=== PATIENT | male | born 1950 | race African-American/Black ===

== ENCOUNTER 2024-03-05 14:27 | Emergency (ER) | payer MEDICARE, BC, SELFPAY ==
[2024-03-05 14:28] VITALS: BP 183/101
--- NOTE | 2024-03-05 15:39 | ED.GENMED ---
History of Present Illness
<Savita Rollins PA-C - Last Filed: 03/05/24 18:37>
General
Chief Complaint: Cold/Flu/URI Symptoms
Source: patient
Exam Limitations: none
Time Seen by Provider: 03/05/24 15:09
Nursing documentation reviewed up to this point in time: agreed with
History of Present Illness
History of Present Illness:
Patient is a 73-year-old male with history hypertension, hyperlipidemia presenting to the emergency department with 9 days of cough and congestion. Patient reports proximately 9 days ago he started with nasal congestion, chest congestion, cough,
and intermittent sore throat. Symptoms do seem to persist since. Patient notes productive cough with clear/yellow sputum. Cough seems to be worse at night. Patient denies any associated fever, chills, shortness of breath, chest pain, difficulty
swallowing.
Patient has been taking Tylenol at home with some improvement in symptoms. No known sick contacts.
Review of Systems
<Savita Rollins PA-C - Last Filed: 03/05/24 18:37>
Review of Systems
Allergies reviewed?: Yes
All Other Systems: ROS reviewed and negative except as documented in HPI and ROS
Phy Exam
<Savita Rollins PA-C - Last Filed: 03/05/24 18:37>
Physical Exam
Physical Exam:
Vitals: Hypertensive, otherwise vital signs stable. Afebrile
General: Patient is well appearing, no acute distress. Nontoxic appearing
Skin: Warm and dry, no rashes or lesions
Head: Normocephalic, atraumatic
Eyes: Sclera nonicteric. EOMs intact. No nystagmus.
Throat: Posterior pharynx mildly erythematous without any tonsillar exudates or edema. Uvula midline. No ETCHER HAND. Protecting airway. Trachea midline
Neck: Normal ROM, no cervical spine tenderness, no meningismus
Cardiac: Regular rate and rhythm, no murmurs.
Pulm: Normal respiratory effort, no wheezes, rales, rhonchi heard on exam. Oxygen saturation 100 on room air
Abdomen: Abdomen soft. No abdominal tenderness.
Extremities: No evidence of cyanosis or edema. Great distal pulses
Neuro: AAOx3. CN II-XII intact. No focal neurologic deficits.
Psychiatric: Normal affect.
Course
<Savita Rollins PA-C - Last Filed: 03/05/24 18:37>
Orders/Labs/Results
Orders:
Orders
03/05/24 15:35
CR Chest - 2 Views Urgent
Comment:
Reason For Exam: cough & congestion x 9 days
03/05/24 15:41
COVID-19 Antigen Urgent
Source: Nasal Swab
Influenza A+B Rapid Molecular Urgent
BUDDY Source: Nasal Swab
Specimen Description:
03/05/24 17:12
Amoxicillin 875 mg/Clav 125 mg [Augmentin 875 mg/125 mg] 1 tablet PO NOW STA
Doxycycline [Vibramycin] 100 mg PO NOW STA
Vital Signs
Initial and Last Documented VS:
Initial Vital Signs
Temp Pulse Resp BP Pulse Ox
36.9 C 58 16 183/101 96
03/05/24 14:28 03/05/24 14:28 03/05/24 14:28 03/05/24 14:28 03/05/24 14:28
Last Documented Vital Signs
Temp Pulse Resp BP Pulse Ox
37.0 C 86 18 164/90 100
03/05/24 17:20 03/05/24 17:20 03/05/24 17:20 03/05/24 17:20 03/05/24 17:20
<Bob Jimenez MD - Last Filed: 03/05/24 19:54>
Orders/Labs/Results
Orders:
Orders
03/05/24 15:35
CR Chest - 2 Views Urgent
Comment:
Reason For Exam: cough & congestion x 9 days
03/05/24 15:41
COVID-19 Antigen Urgent
Source: Nasal Swab
Influenza A+B Rapid Molecular Urgent
BUDDY Source: Nasal Swab
Specimen Description:
03/05/24 17:12
Amoxicillin 875 mg/Clav 125 mg [Augmentin 875 mg/125 mg] 1 tablet PO NOW STA
Doxycycline [Vibramycin] 100 mg PO NOW STA
Vital Signs
Initial and Last Documented VS:
Initial Vital Signs
Temp Pulse Resp BP Pulse Ox
36.9 C 58 16 183/101 96
03/05/24 14:28 03/05/24 14:28 03/05/24 14:28 03/05/24 14:28 03/05/24 14:28
Last Documented Vital Signs
Temp Pulse Resp BP Pulse Ox
37.0 C 86 18 164/90 100
03/05/24 17:20 03/05/24 17:20 03/05/24 17:20 03/05/24 17:20 03/05/24 17:20
<Savita Rollins PA-C - Last Filed: 03/05/24 18:37>
MDM/Problems Addressed
Differential Diagnosis Includes:
Not limited to: Viral illness including COVID, flu, etc., bronchitis, pneumonia, pneumothorax, bacterial pharyngitis, CHF, etc.
MDM/Problems Addressed:
Hypertension
Chronic conditions affecting care:
73-year-old male with history as documented presenting with 9 days of viral URI symptoms and persistent cough. There are no associated fevers. Mildly hypertensive on arrival, otherwise vital signs are stable. Patient is afebrile and not hypoxic.
Exam unremarkable. Patient is in no apparent respiratory distress with clear lung sounds bilaterally. No ETCHER HAND on exam, do not suspect bacterial pharyngitis. Differential broad although suspect likely viral URI. Given duration of symptoms and
age�will check chest x-ray to rule out pneumonia. Patient without any edema or dyspnea to suggest CHF.
Update: Viral swabs negative. Chest x-ray report reviewed which shows no acute findings. Do suspect likely viral URI. However�did discuss with attending physician and will treat for possible underlying pneumonia. Patient is afebrile in no
apparent respiratory distress and very well-appearing�admission not indicated. Patient given first dose of Augmentin, doxycycline in emergency department. Patient stable for discharge home, plan to follow-up with primary care in a few days to
ensure symptoms are improving. Return precautions discussed at length. Patient seen with attending physician.
Acute Exacerbation and/or Progression of Chronic Illness:
Acutely hypertensive
<Savita Rollins PA-C - Last Filed: 03/05/24 18:37>
*Radiology
Radiology exam reviewed: preliminary read by ED provider and radiology read reviewed
*Pulse Oximetry
Patient hypoxic: no
*EKG
Interpreted by ED Provider?: NA
*Pipeline Integrity Engineer Interpretation
Rate: Pipeline Integrity Engineer- N/A
*Critical Care Note
Total Time (30-74mins, 75-104mins- exclusive of procedures): Not Applicable
ED Attending Note
<Savita Rollins PA-C - Last Filed: 03/05/24 18:37>
-
Portions of this chart may have been created with voice recognition software.� Occasional wrong word or��sound alike� substitutions may have occurred due to the inherent limitations of voice recognition software.
<Bob Jimenez MD - Last Filed: 03/05/24 19:54>
ED Attending Note
Patient seen and examined by attending physician: Yes
ED Attending Note:
I have seen and evaluated the patient with a [id number] encounter. I have spoken to the advance practicer provider and involved in the medical history, the physical exam, medical decision making.
Evaluation and management service: agree unless noted differently below.
Results interpretation: agree unless noted differently below.
Focused HPI: 73-year-old male with a history of hypertension and hyperlipidemia presents to the emergency room for evaluation of cough and congestion. He reports onset of symptoms a little bit over a week ago�he says initially he had congestion and
mild sore throat and symptoms 'made the way into the chest.' He says that he has had a hacking cough for about a week now productive of yellowish sputum. He denies any chest pain or shortness of breath. He denies any fevers or chills. He denies
any vomiting or diarrhea. He denies any other complaints.
Physical exam: Awake alert not in distress. Hypertensive but otherwise normal vitals. He has no cardiac rubs gallops or murmurs. Lungs sound clear to auscultation bilaterally. Occasional coughing on lung auscultation. Mucous membranes are
moist. No edema in the extremities.
Medical Decision Makin-year-old male presents for evaluation of persistent cough for a little over a week�initially started with URI symptoms and progressed to hacking cough. COVID and flu negative. Sent for chest x-ray reviewed by
me�question some developing right perihilar pneumonia. Will cover with antibiotics. Stable for discharge, follow-up with PCP. Patient comfortable this plan. Spoke about return precautions all questions answered.
Discharge Plan
Departure
Patient Disposition: Home (Routine Discharge)
Date of Disposition: 03/05/24
Time of Disposition: 17:13
Patient with high blood pressure during this ER visit?: Yes
Condition: Good
Covid-19: Negative COVID-19
Discharge Problem:
Community acquired pneumonia, Cough
Instructions: Pneumonia in adults, Cough, Adult ED
Prescriptions:
New
amoxicillin-pot clavulanate 875-125 mg tablet
1 tab PO BID 5 Days Qty: 10 0RF
doxycycline hyclate 100 mg capsule
100 mg PO BID 5 Days Qty: 10 0RF
Referrals:
Blane Carlin, [Family Provider] - Follow up in 2-3 days
Activity Restrictions/Additional Instructions:
RETURN TO THE EMERGENCY DEPARTMENT WITH ANY FEVERS, CHILLS, CHEST PAIN, SHORTNESS OF BREATH, PERSISTENT/WORSENING COUGH, COUGHING UP BLOOD, OR ANY OTHER CONCERNS
-Prescriptions for antibiotics have been sent to your pharmacy. You should take both of these twice a day for the next 5 days.
-Is important to stay well hydrated. Get plenty of rest.
-As discussed�it is very important you follow-up with your primary care provider in a few days to ensure symptoms are improving/for further evaluation
Monitor your symptoms closely and return to the emergency department with any acute worsening/new symptoms
Interventions
Interventions:
*Risk Screen - Suicide Last Done: 03/05/24 14:28
*General Assessment Last Done: 03/05/24 14:28
*Neglect/Abuse Screening Last Done: 03/05/24 14:28
*ED COVID-19 Vaccine History Last Done: 03/05/24 14:28
*Nursing Disposition Last Done: 03/05/24 17:29
ED- Pulmonary Assessment Last Done: 03/05/24 16:20
Discharge Date and Time
Discharge Date/Time: 03/05/24 17:30
Print Language: PERUVIAN
[2024-03-05 16:05] LABS: COVID-19 Antigen Negative (Negative)
[2024-03-05] MEDS: AUGMENTIN 875 MG/125 MG 1 TABLET PO (17:19)
[2024-03-05] MEDS: VIBRAMYCIN 100 MG PO (17:19)
[2024-03-05 17:20] VITALS: BP 164/90
== END 2024-03-05 17:30 | disposition home or self-care (01) ==
LOC: EMR 14:27
PROVIDERS: Physician Assistant; EMERGENCY PHYSICIAN Emergency Medicine; FAMILY PHYSICIAN Family Medicine
DX: J18.9 Pneumonia, unspecified organism (principal); R05.9 Cough, unspecified; I10 Essential (primary) hypertension; E78.5 Hyperlipidemia, unspecified; Z11.52 Encounter for screening for COVID-19
CPT/HCPCS: 99284; 71046; 87502; 87811